=== PATIENT | female | born 1950 | race Caucasian/White ===

== ENCOUNTER 2019-10-09 10:08 | Outpatient (CLI) | payer OTHER, SELFPAY ==
--- NOTE | ~2019-10-09 | MM_ITS ---
EXAMINATION: MM screening [facility] HISTORY: Screening mammogram TECHNIQUE: Craniocaudal and mediolateral oblique 3-D tomosynthesis images were obtained and synthetic 2-D images were generated. CAD analysis was submitted and interpreted. COMPARISON: 10/06/2018, 09/22/2014, 06/15/2013 bilateral digital screening mammogram examinations BREAST PARENCHYMAL COMPOSITION: There are scattered areas of fibroglandular density. FINDINGS: There is no evidence of suspicious mass, calcification, or architectural distortion to sugg est malignancy in either breast. There has been no suspicious interval change. IMPRESSION: 1. No mammographic evidence of malignancy. 2. Recommend routine screening mammography in one year. 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
== END 2019-10-09 10:09 | disposition home or self-care (01) ==
LOC: ANHIMG 10:13
PROVIDERS: PCP Family Medicine; Visit Provider Family Medicine
DX: Z12.31 Encounter for screening mammogram for malignant neoplasm of breast (principal)
CPT/HCPCS: 77063; 77067

== ENCOUNTER 2020-12-07 13:00 | Outpatient (CLI) | payer OTHER, SELFPAY ==
--- NOTE | ~2020-12-07 | MM_ITS ---
EXAMINATION: MM screening [facility] BI w melina HISTORY: Screening TECHNIQUE: Craniocaudal and mediolateral oblique 3-D tomosynthesis images were obtained and synthetic 2-D images were generated. CAD analysis was submitted and interpreted. COMPARISON: Comparison to multiple prior studies sequentially, with oldest reviewed study dated 04/02. BREAST PARENCHYMAL COMPOSITION: There are scattered areas of fibroglandular density. FINDINGS: There is no evidence of suspicious mass, calcification, or architectural distortion to sugg est malignancy in either breast. There has been no suspicious interval change. IMPRESSION: 1. No mammographic evidence of malignancy. 2. Recommend routine screening mammography in one year. BI-RADS Category 1: Negative Reviewed, dictated and finalized at location A.
--- NOTE | ~2020-12-07 | DEXA_ITS ---
Bone Density Report Name: Gloria Alvarado Age: 70 Sex: Female Ethnicity: White Date of : 1950 Indication: osteopenia; cancer; hysterectomy; Referring Provider: Sonu, Xavier Villatoro Study: Bone densitometry was performed. Exam Date: December 07, 2020 Accession number: [id number] Bone Density: Region BMD T-score Z-score Classification AP Spine (L1, L3, L4) 0.941 -1.0 1.0 Normal Femoral Neck (Left) 0.705 -1.3 0.4 Osteopenia Total Hip (Left) 0.850 -0.8 0.6 Normal Total Hip Bilateral Avg 0.835 -0.9 0.5 Normal Femoral Neck (Right) 0.680 -1.5 0.2 Osteopenia Total Hip (Right) 0.819 -1.0 0.4 Normal World Health Organization criteria for BMD impression classify patients as: Normal (T-score at or above -1.0), Osteopenia (T-score between -1.0 and -2.5), or Osteoporosis (T-score at or below -2.5). 10-year Fracture Risk(1): Major Osteoporotic Fracture 9.4% Hip Fracture 1.2% Reported Risk Factors: [place] (), Neck BMD=0.680, BMI=29.1 (1) FRAX(R) Version 3.08. Fracture probability calculated for an untreated patient. Fracture probability may be lower if the patient has received treatment. Previous Exams: Region Exam Age BMD T-score BMD Change BMD Change Date g/cm2 vs Baseline vs Previous AP Spine(L1, L3, L4) 12/07/2020 70 0.941 -1.0 0.031(3.5%)* 0.031(3.5%)* 10/06/2018 68 0.909 -1.3 Total Hip(Left) 12/07/2020 70 0.850 -0.8 0.006(0.8%) 0.006(0.8%) 10/06/2018 68 0.844 -0.8 Total Hip(Right) 12/07/2020 70 0.819 -1.0 -0.035(-4.1%)* -0.035(-4.1%)* 10/06/2018 68 0.854 -0.7 *Denotes significance at 95% confidence level, LSC for AP Spine = 0.022 g/cm2, LSC for Total Hip = 0.027 g/cm2 Clinical Information Provided by Patient: Has used the following medications: Calcium Has the following medical conditions: Cancer, Hysterectomy Patient maximum height was 64.5 Menopause Age: 43 No regular weight bearing exercise Drinks caffeinated beverages Onset of menses at age 14 Number of children 0 Impression: The patient has low bone mass, based on the Right Femoral Neck T-score. The patient has an estimated ten-year risk of hip fracture of 1.2% and an estimated ten-year risk of major fracture of 9.4%, based on the WHO FRAX algorithm. The BMD for the Total Hip(Right) decreased, changing by -4.1% since the last DXA exam. Discussion: BONE DENSITY IS LOW AT ONE OR MORE SKELETAL SITES. This patient's lowest T-score is low at one or m
== END 2020-12-07 13:01 | disposition home or self-care (01) ==
LOC: ANHIMG 13:02
PROVIDERS: PCP Family Medicine; Visit Provider Family Medicine
DX: Z12.31 Encounter for screening mammogram for malignant neoplasm of breast (principal); Z78.0 Asymptomatic menopausal state; M85.851 Other specified disorders of bone density and structure, right thigh
CPT/HCPCS: 77063; 77067; 77080

== ENCOUNTER 2022-01-11 09:27 | Outpatient (CLI) | payer OTHER, SELFPAY ==
--- NOTE | ~2022-01-11 | MM_ITS ---
EXAMINATION: MM screening [facility] BI w melina HISTORY: Screening mammogram TECHNIQUE: Craniocaudal and mediolateral oblique 3-D tomosynthesis images were obtained and synthetic 2-D images were generated. CAD analysis was submitted and interpreted. COMPARISON: 12/07/2020, 10/09/2019, 10/06/2018 BREAST PARENCHYMAL COMPOSITION: There are scattered areas of fibroglandular density. FINDINGS: There is no suspicious mass, calcification, or architectural distortion to suggest malignan cy in either breast. There has been no suspicious interval change. IMPRESSION: 1. No mammographic evidence of malignancy. 2. Recommend routine screening mammography in one year. BI-RADS Category 1: Negative Reviewed, dictated and finalized at location A.
== END 2022-01-11 09:28 | disposition home or self-care (01) ==
LOC: ANHIMG 09:28
PROVIDERS: PCP Family Medicine; Visit Provider Family Medicine
DX: Z12.31 Encounter for screening mammogram for malignant neoplasm of breast (principal)
CPT/HCPCS: 77063; 77067

== ENCOUNTER 2022-05-06 09:49 | Emergency (ER) | payer OTHER, SELFPAY ==
--- NOTE | ~2022-05-06 | XR_ITS ---
EXAMINATION: XR chest 2V DATE: 05/06/2022 10:36 INDICATION: Tachycardia and fever TECHNIQUE: frontal and lateral views of the chest were obtained. COMPARISON: None FINDINGS: The lungs are clear with no focal airspace opacities, pulmonary edema, pleural effusion or pneumothor ax. The cardiomediastinal silhouette is normal. Mild to moderate spondylosis in the thoracic and uppe r lumbar spine. IMPRESSION: 1. No acute cardiopulmonary disease. Reviewed, dictated and finalized at location A.
[2022-05-06 10:03] VITALS: BP 125/89; PULSE 127; RESP 18; TEMP 39.5; O2SAT 97
--- NOTE | 2022-05-06 10:25 | ED.GENADULT ---
HPI - General Adult General Chief complaint: Upper Respiratory Infection Stated complaint: sore throat,body aches Source: patient Mode of arrival: ambulatory Limitations: no limitations History of Present Illness HPI narrative: Patient presents for evaluation of sick symptoms since yesterday. Symptoms include sinus congestion and, sore throat, productive cough of clear/yellow sputum, fever, fatigue, generalized body aches and SOB only when coughing. No chills, nausea, vomiting, chest pain or palpitations. She states a coworker she was exposed to 2 days ago has had similar symptoms as of late. No history of COVID. She has received both COVID vaccinations and her boosters x2. She took ibuprofen for her symptoms yesterday. Related Data Home Medications Medication Instructions Recorded Confirmed rosuvastatin 10 mg tablet 10 mg PO DAILY 05/06/22 05/06/22 sertraline 50 mg tablet 10 mg PO DAILY 05/06/22 05/06/22 Allergies Allergy/AdvReac Type Severity Reaction Status Date / Time codeine Allergy Unknown Other Verified 05/06/22 10:01 Sulfa (Sulfonamide Allergy Unknown Other Verified 05/06/22 10:01 Antibiotics) tetracycline AdvReac Mild NAUSEA Verified 05/06/22 10:01 Review of Systems Review of Systems: CONSTITUTIONAL:Reports fever and fatigue. Denies chills EYES: Denies visual changes, redness, or discharge. ENT: Reports sinus congestion, drainage and sore throat CARDIOVASCULAR: Denies chest pain, palpitations, or edema. RESPIRATORY: Reports productive cough of yellow sputum, and SOB only during coughing episodes GASTROINTESTINAL: Denies abdominal pain, nausea, vomiting, or diarrhea. GENITOURINARY: Denies dysuria or hematuria. SKIN: Denies rash or itching. MUSCULOSKELETAL: Reports generalized body aches NEUROLOGIC: Denies headache, numbness, dizziness, or weakness. PSYCHIATRIC: Denies anxiety or depression. [facility] Past Medical History Medical History (Updated 05/06/22 @ 11:53 by ANGELICA Helms, BRANDEE) Depression Hyperlipidemia Surgical History Surgical History History of partial hysterectomy Family History Family History Sibling Depression Patient's sister is in good health Family history of irritable bowel syndrome Father Family history of allergic disorder Patient's father is in good health, Onset Age: 86 Mother Family history of alcoholism Family history of kidney disease, Onset Age: 83 Other Family history of malignant neoplasm of male breast Social History Social History Smoking status: Never smoker Alcohol intake: current Substance use: never Gender identity (if verbalized by the patient): Female Spiritual care concerns: No Exam Narrative: GENERAL: Appears acutely ill but nontoxic HEAD: Normocephalic, atraumatic. EYES: PERRLA and EOMI. ENT: Nares clear, no rhinorrhea or epistaxis. Mucous membranes moist. Oropharynx without tonsillar hypertrophy exudate or other lesions, however there is posterior pharyngeal erythema. Bilateral TMs pearly araujo nonbulging NECK: Supple. No adenopathy or masses. No carotid bruits or JVD CHEST: Clear to auscultation. No respiratory distress. No wheezes rales or rhonchi HEART: Regular rate and rhythm. No murmur heard. Normal peripheral pulses. ABDOMEN: Soft, nontender, nondistended, normal active bowel sounds. EXTREMITIES: Normal range of motion. No edema. SKIN: Warm, dry, no rash. NEURO: No focal deficits. Alert and oriented x3. PSYCH: Normal mood and affect. Course Course Emergency Course: This is a 71-year-old female who presented for evaluation of sick symptoms. COVID was positive. Chest x-ray normal. Strep and influenza negative. She was febrile and tachycardic on arrival. EKG showed no acute ischemic changes. She was given 1 g of Tylenol
[2022-05-06] MEDS: ACETAMINOPHEN 500 MG TABLET 1000 MG PO (10:36)
--- NOTE | 2022-05-06 10:57 | ECG_ITS ---
Measurements Intervals [place] Rate: 122 P: 23 TX: 142 QRS: -68 QRSD: 93 T: 11 QT: 317 QTc: 452 Interpretive Statements SINUS TACHYCARDIA NO PREVIOUS ECG AVAILABLE FOR COMPARISON Electronically Signed On 05-06-2022 17:49:22 CDT by Rodri Thomas M.D.
[2022-05-06 11:39] VITALS: PULSE 109; RESP 20; TEMP 38.6; O2SAT 98
== END 2022-05-06 11:58 | disposition home or self-care (01) ==
PROVIDERS: Emergency Provider Nurse Practitioner; PCP Family Medicine
DX: U07.1 COVID-19 (principal); R00.0 Tachycardia, unspecified; E78.5 Hyperlipidemia, unspecified; E11.9 Type 2 diabetes mellitus without complications; Z90.711 Acquired absence of uterus with remaining cervical stump; F32.A Depression, unspecified
CPT/HCPCS: 71046; 87081; 87426; 87804; 87880; 93005; 99213; A9270; C9803; G0463